=== PATIENT | male | born 1950 | race Caucasian/White ===

== ENCOUNTER 2019-04-06 11:12 | Emergency (ER) | payer OTHER ==
[~2019-04-06] VITALS: Ht 182.9 cm; Wt 110.7 kg
[2019-04-06 11:48] LABS: ABSOLUTE LYMPHOCYTES 0.8 thou/uL (0.8-5.3); ABSOLUTE MONOCYTES 0.4 thou/uL (0.0-1.2); ABSOLUTE NEUTROPHILS 4.8 thou/uL (1.6-8.1); BASOPHILS 0.6 %; EOSINOPHILS 0.2 %; HEMATOCRIT 47.1 % (42.0-52.0); LYMPHOCYTES 13.5 %; MCH 28.9 pg (26.0-34.0); MONOCYTES 6.9 %; MPV 8.7 fl. (7.2-11.1); NUCLEATED RBCS 0 /100WBC; PLATELET COUNT* 177 thou/uL (150-400); POLYS 78.8 %; RBC 5.54 mil/uL (4.50-6.00); RDW-CV 14.2 % (10.5-14.5); WBC 6.1 thou/uL (4.0-11.0)
[2019-04-06 11:57] LABS: APTT 27.7 Seconds (25.0-31.3); PROTIME 10.7 Seconds (9.20-11.50)
[2019-04-06 11:58] LABS: CALCIUM 8.7 mg/dL (8.5-10.1); CREATININE 1.4 mg/dL (0.6-1.3); POTASSIUM 3.1 mmol/L (3.5-5.1)
[2019-04-06] MEDS ORDERED: LIPITOR80 MG PO (12:00)
[2019-04-06] MEDS ORDERED: OMEPRAZOLE20 M1 PO (12:01)
[2019-04-06] MEDS ORDERED: ZOLOFT100 MG PO (12:01)
[2019-04-06] MEDS ORDERED: FISH OIL 1,001000 M2 PO (12:02)
[2019-04-06] MEDS ORDERED: REMERON15 MG PO (12:02)
[2019-04-06] MEDS ORDERED: COMTAN200 MG PO (12:03)
[2019-04-06] MEDS ORDERED: MINIPRESS2 MG PO (12:03)
[2019-04-06] MEDS ORDERED: COLACE100 MG PO (12:03)
[2019-04-06] MEDS ORDERED: CHLORTHALIDONE25 MG PO (12:04)
[2019-04-06] MEDS ORDERED: SINEMET 10-1001 EAC1 PO (12:04)
[2019-04-06] MEDS ORDERED: OXYBUTYNIN 5 MG5 M2 PO (12:04)
[2019-04-06] MEDS ORDERED: FLORINEF ACETA0.1 MG PO (12:05)
[2019-04-06 12:08] LABS: ALBUMIN 3.3 g/dL (3.4-5.0); TOTAL BILIRUBIN 0.8 mg/dL (<0.1-1.0); TOTAL PROTEIN 7.3 g/dL (6.4-8.2); TROPONIN-I LEVEL 0.07 ng/mL (<0.06)
[2019-04-06 14:46] VITALS: BP 102/63
--- NOTE | 2019-04-08 09:29 | EKG ---
[place] [address] ELECTROCARDIOGRAM REPORT Name: BENITO GEORGE Room: [facility]#: [id number] Admission: 04/06/19 Attend Phys: Discharge: 04/06/19 Date of : 46 Report #: [id number] THIS REPORT FOR: //name// [facility] ED Test Date: 2019-04-06 Test Time: 12:31:05 Pat Name: BENITO GEORGE Department: Room: Gender: M Administrator Pesticide: : 1950 Requested By: Valentin Moore Order Number: [id number] MD: Fred Molina Measurements Intervals Steele Rate: 87 P: 64 WA: 197 QRS: 5 QRSD: 93 T: 32 QT: 392 QTc: 472 Interpretive Statements Sinus rhythm Consider RVH or posterior infarct Nonspecific T abnormalities, anterior leads Baseline wander in lead(s) V3 No previous ECG available for comparison Electronically Signed On 04-08-2019 9:29:11 CDT by Fred Molina [email or web address] <ELECTRONICALLY SIGNED> By: Fred Molina MD, [facility] 04/08/19 0929 123 30 Fred Molina MD, [facility] /EPI
== END 2019-04-06 14:46 | disposition short-term general hospital (02) ==
LOC: M.ERS 11:12
PROVIDERS: Family Medicine
DX: J44.1 Chronic obstructive pulmonary disease with (acute) exacerbation (principal); R55 Syncope and collapse; R77.8 Other specified abnormalities of plasma proteins; G89.29 Other chronic pain; M79.604 Pain in right leg; M53.3 Sacrococcygeal disorders, not elsewhere classified; G20 Parkinson's disease; F17.210 Nicotine dependence, cigarettes, uncomplicated